=== PATIENT | female | born 1965 | race Asian ===

== ENCOUNTER → 2024-04-23 | Emergency (ER) | payer MEDICAID ==
[~2024-04-23] VITALS: Ht 154.9 cm; Wt 54.5 kg
[~2024-04-23] MED LIST: ACETAMINOPHEN 500 MG TABLET PO ONE; EMPA10TA3 PO; HYDR12.54 PO; LOSA-382 PO; METF-1211 PO
[2024-04-23 11:44] VITALS: BP 145/96; PULSE 84; RESP 18; TEMP 98.7; O2SAT 100
[2024-04-23 11:55] LABS: GLUCOMETER DEV NAME(LOC) ER.7; GLUCOSE,POINT OF CARE 138 MG/DL (70-110)
== END | disposition still patient (30) ==
LOC: EMS 11:28
DX: M25.562 Pain in left knee (principal); E11.9 Type 2 diabetes mellitus without complications; E78.00 Pure hypercholesterolemia, unspecified; I10 Essential (primary) hypertension; Z88.1 Allergy status to other antibiotic agents
CPT/HCPCS: 82962; 99282